=== PATIENT | male | born 1990 | race Caucasian/White ===

== ENCOUNTER 2025-05-25 20:38 | Emergency (ER) | payer SELFPAY ==
[2025-05-25] VITALS (9 sets, daily range): BP systolic 121–156; BP diastolic 83–101; PULSE 71–94; RESP 15–18; TEMP 36.6; O2SAT 94–98; BMI 21.7
--- NOTE | 2025-05-25 20:51 | ECG_ITS ---
[facility] Test Date: 2025-05-25 Pat Name: Flores Chavarria Department: Room: Gender: Male Director [employer]: : 1990 Requested By: Karan Romo Order Number: [id number] Reading MD: Measurements Intervals [place] Rate: 70 P: 6 IA: 127 QRS: 76 QRSD: 89 T: 50 QT: 375 QTc: 406 Interpretive Statements SINUS RHYTHM No previous ECG available for comparison [email or web address]
--- NOTE | 2025-05-25 21:04 | CTR_ITS ---
PROCEDURE INFORMATION: Exam: CT Head Without Contrast Exam date and time: 05/25/2025 9:51 PM Age: 34 years old Clinical indication: Pain; Headache; WEIR with hypertension TECHNIQUE: Imaging protocol: Computed tomography of the head without contrast. Radiation optimization: All CT scans at this facility use at least one of these dose optimization techniques: automated exposure control; mA and/or kV adjustment per patient size (includes targeted exams where dose is matched to clinical indication); or iterative reconstruction. COMPARISON: No relevant prior studies available. RADIATION DOSE METRICS: Total DLP (mGy-cm): 1014.98 FINDINGS: Brain: Normal. No hemorrhage. Unremarkable white matter. No mass effect. Cerebral ventricles: No ventriculomegaly. Paranasal sinuses: Visualized sinuses are unremarkable. No fluid levels. Mastoid air cells: Visualized mastoid air cells are well aerated. Bones: Unremarkable. No acute fracture. Soft tissues: Unremarkable. CT/CT head wo con* [id number] IMPRESSION: No acute intracranial abnormality.
[2025-05-25 22:41] LABS: Hematocrit 42.8 % (37-53); Hemoglobin 14.40 g/dL (11.27-16.99); Mean Corpuscular HGB Conc 33.6 g/dL (30-55); Mean Corpuscular Hemoglobin 29.8 pg (27-33); Mean Corpuscular Volume 88.4 fl (82-101); Nucleated Red Blood Cells % 0 %; Platelet Count 326 10^3/cmm (157-399); Red Blood Count 4.84 10^6/uL (3.85-5.65); White Blood Count 8.94 10^3/uL (3.29-11.43)
[2025-05-25 23:02] LABS: Alanine Aminotransferase 36 U/L (0-41); Albumin Level 4.3 g/dL (3.5-5.2); Alkaline Phosphatase 77 U/L (40-130); Anion Gap 16.1 (5-19); Aspartate Amino Transferase 20 U/L (0-40); Blood Urea Nitrogen 9 mg/dL (6-20); Calcium 9.1 mg/dL (8.5-10.5); Carbon Dioxide 25 mmol/L (22-29); Chloride 98 mmol/L (98-107); Creatinine Clr Calc Pharmacy 183.7257; Globulin 2.8 g/dL (1.3-4.6); Glucose 126 mg/dL (65-115); Osmolality Calculated 280 mOsm/kg (285-295); Potassium 4.1 mmol/L (3.5-5.1); Sodium 135 mmol/L (136-145); Total Protein 7.1 g/dL (6.6-8.7)
--- NOTE | 2025-05-25 23:22 | ED_ITS ---
HPI - General Adult 2 General: Chief complaint: Headache Stated complaint: Headache/ BP ISSUES Time Seen by Provider: 05/25/25 20:48 History of Present Illness: Patient presents emerged department with complaint of hypertension. He states that his blood pressure has been fairly labile. He was started on lisinopril 10 mg daily last week. He states he does have a headache. States his blood pressure has not been going anywhere from 200 systolic down to 150 systolic. Denies any chest pain. Related Data Previous Rx's ?Medication ?Instructions ?Recorded lisinopril 20 mg tablet 20 mg PO DAILY #30 tabs 03/16 Physical Exam 2 Const: COMMON NORMALS: patient oriented x3 and alert Neck/C-Spine: COMMON NORMALS: no JVD Resp: COMMON NORMALS: normal respiratory effort, No retractions, No use of accessory muscles, clear to auscultation bilaterally and percussion normal A USCULTATION: clear to auscultation bilaterally PERCUSSION: percussion normal Cardio: COMMON NORMALS: no JVD, regular rate, regular rhythm, S1 normal heart sound present, S2 normal heart sound present, No gallops present (Cardio), No clicks present (Cardio), No murmurs present (Cardio), No rub (Cardio) and Peripheral pulses 2+ throughout RATE: regular rate RHYTHM: regular rhythm HEART SOUNDS: S1 normal heart sound present and S2 normal heart sound present PERIPHERAL PULSES: Peripheral pulses 2+ throughout GI: COMMON NORMALS: Normal to inspection, nondistended, normoactive bowel sounds present, Soft to palpation, non-tender, No hepatosplenomegaly present, no masses and no bruits PALPATION: Yes Soft to palpation and Yes No hepatosplenomegaly present Neuro: COMMON NORMALS: patient oriented x3, moves all extremities, no focal motor deficits, no sensory deficits noted and deep tendon reflexes 2+ bilaterally SENSORIUM/ORIENTATION: Yes alert Course 2 Vital Signs: Vital signs: Vital Signs Temperature 98 F 05/25/25 20:45 Pulse Rate 75 05/25/25 23:20 Respiratory Rate 15 05/25/25 22:31 Blood Pressure 135/94 05/25/25 23:20 Pulse Oximetry 96 05/25/25 23:20 Oxygen Delivery Me thod Room Air 05/25/25 23:20 [facility] - General Adult Medical Decision Making Patient with hypertension. Given an extra dose of lisinopril and blood pressure improved. No significant abnormality noted on labs or imaging. EKG is nonischemic. Head CT is negative. Will increase patient's blood pressure to lisinopril 20 mg daily. Do not see any indication for further emergent workup at this time. Lab Data 05/25/25 22:24 05/25/25 22:[address] 05/25/25 21:04 IMPRESSION: No acute intracranial abnormality. Laboratory Results WBC 8.94 10^3/uL (3.29-11.43) 05/25/25 22:24 RBC 4.84 10^6/uL (3.85-5.65) 05/25/25 22:24 Hgb 14.40 g/dL (11.27-16.99) 05/25/25 22:24 Hct 42.8 % (37-53) 05/25/25 22:24 MCV 88.4 fl (82-101) 05/25/25 22:24 MCH 29.8 pg (27-33) 05/25/25 22: MCHC 33.6 g/dL (30-55) 05/25/25 22:24 RDW 12.3 % (12.1-15.1) 05/25/25 22:24 Plt Count 326 10^3/cmm (157-399) 05/25/25 22:24 MPV 10.3 fL (7.4-10.4) 05/25/25 22:24 Neut % (Auto) 73.9 % 05/25/25 22:24 Lymph % (Auto) 16.6 % 05/25/25 22:24 [place] % (Auto) 8.7 % 05/25/25 22:24 Eos % (Auto) 0.4 % 05/25/25 22:24 Baso % (Auto) 0.3 % 05/25/25 22:24 Neut # (Auto) 6.60 10^3/uL (1.8-7.7) 05/25/25 22: Lymph # (Auto) 1.5 10^3/uL (0.8-4.8) 05/25/25 22:24 [place] # (Auto) 0.8 10^3/uL (0.2-0.9) 05/25/25 22:24 Eos # (Auto) 0.0 10^3/uL (0.0-0.8) 05/25/25 22:24 Baso # (Auto) 0.0 10^3/uL (0.0-0.1) 05/25/25 22:24 Nucleated RBC % (auto) 0 % 05/25/25 22:24 Nucleated RBCs # 0.0 /100WBC 05/25/25 22:24 Sodium 135 mmol/L (136-145) L 05/25/25 22:24 Potassium 4.1 mmol/L (3.5-5.1) 05/25/25 22:24 Chloride 98 mmol/L (98-107) 05/25/25 22:24 Carbon Dioxide 25 mmol/L (22-29) 05/25/25 22:24 Anion Gap 16.1 (5-19) 05/25/25 22:24 BUN 9 mg/dL (6-20) 05/25/25 22:24 Creatinine 0.6 mg/dL (0.7-1.2) L 05/25/25 22:24 GFR Calculation 153.3 mL/min (90-130) H 05/25/25 22:24 Glucose 126 mg/dL (65-115) H 05/25/25 22:24 Calculated Osmolality 280 mOsm/kg (285-295) L 05/25/25 22:24 Calcium 9.1 mg/dL (8.5-10.5) 05/25/25 22:24 Total Bilirubin 1.0 mg/dL (0.15-1.2) 05/25/25 22:24 AST 20 U/L (0-40) 05/25/25 22:24 ALT 36 U/L (0-41) 05/25/25 22:24 Alkaline Phosphatase 77 U/L (40-130) 05/25/25 22:24 Total Protein 7.1 g/dL (6.6-8.7) 05/25/25 22:24 Albumin 4.3 g/dL (3.5-5.2) 05/25/25 22:24 Globulin 2.8 g/dL (1.3-4.6) 05/25/25 22:24 All radiology interpretation(s) finalized by discharge Discharge Plan Discharge Patient Disposition: Home Clinical Impression: Hypertension Condition: Stable Prescriptions: New lisinopril 20 mg tablet 20 mg PO DAILY Qty: 30 0RF Discharge Orders: Discharge ED (Routine); Ordered 05/25/25 Ordered By: Karan Romo Discharge Diet: Low Salt Patient Instructions: Opioid Safety, Pain Management, Patient Portal & [place] Instructions Print Language: Telugu Coding Level of Care Code ED Storage Facility Housekeeper for Donna Watts
== END 2025-05-25 23:29 | disposition home or self-care (01) ==
PROVIDERS: Emergency Provider Emergency Medicine
DX: I10 Essential (primary) hypertension (principal)
CPT/HCPCS: 36415; 70450; 80053; 85025; 93005; 93010; 99284; J9999